=== PATIENT | male | born 1950 | race Caucasian/White ===

== ENCOUNTER 2019-09-27 01:38 | Outpatient (CLI) | payer OTHER, SELFPAY | END 2019-09-27 01:58 | PROVIDERS: PCP Internal Medicine; Visit Provider Dermatology | DX: L40.9 Psoriasis, unspecified (principal) | CPT/HCPCS: 96900 ==

== ENCOUNTER 2019-10-04 02:28 | Outpatient (CLI) | payer OTHER, SELFPAY | END 2019-10-04 02:48 | PROVIDERS: PCP Internal Medicine; Visit Provider Dermatology | DX: L40.9 Psoriasis, unspecified (principal) | CPT/HCPCS: 96900 ==

== ENCOUNTER 2019-10-11 02:44 | Outpatient (CLI) | payer OTHER, SELFPAY | END 2019-10-11 03:04 | PROVIDERS: PCP Internal Medicine; Visit Provider Dermatology | DX: L40.9 Psoriasis, unspecified (principal) ==